=== PATIENT | male | born 1985 | race Hispanic/Latino ===

== ENCOUNTER 2020-04-30 17:51 | Emergency (ER) | payer OTHER ==
[2020-04-30 18:29] VITALS: BP 132/93
[2020-04-30] MEDS ORDERED: FLUORESCEIN 1 MG STRIP OP ONE (19:50)
[2020-04-30] MEDS ORDERED: TETRACAINE 0.5% OPHTH SOLN 4ML OU ONE (19:54)
[2020-04-30] MEDS ORDERED: IBUPROFEN 600 MG TAB PO ONE (20:15)
[2020-04-30] MEDS ORDERED: DIPHtheria,PERTUSSIS(ACELL),TETANUS VACCINE/PF 0.5 ML VIAL IM ONE (20:15)
[2020-04-30] MEDS ORDERED: oxyCODONE /ACETAMINOPHEN 5-325MG TAB PO ONE (20:15)
[2020-04-30] MEDS ORDERED: ONDANSETRON 4 MG ODT TAB PO ONE (20:16)
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
== END 2020-04-30 21:44 | disposition home or self-care (01) ==
LOC: ED 17:51
DX: S05.01XA Injury of conjunctiva and corneal abrasion without foreign body, right eye, initial encounter (principal); S43.402A Unspecified sprain of left shoulder joint, initial encounter; G44.309 Post-traumatic headache, unspecified, not intractable; M62.838 Other muscle spasm; X58.XXXA Exposure to other specified factors, initial encounter; Y93.89 Activity, other specified; Y92.89 Other specified places as the place of occurrence of the external cause; Y99.8 Other external cause status
CPT/HCPCS: 70450; 72125; 90471; 90715; Q0162